=== PATIENT | male | born 1965 | race Caucasian/White ===

== ENCOUNTER 2019-07-27 20:00 | Emergency (ER) | payer SELFPAY ==
[~2019-07-27] VITALS: Ht 149.9 cm; Wt 71.0 kg
[2019-07-28] MEDS ORDERED: HYDROCODONE/ACETAMINOPHEN 5/325MG TABLET PO ONE (01:30)
[2019-07-28 06:13] VITALS: BP 135/76
== END 2019-07-28 06:49 | disposition home or self-care (01) ==
LOC: ER 20:00
DX: S93.402A Sprain of unspecified ligament of left ankle, initial encounter (principal); M25.552 Pain in left hip; M25.551 Pain in right hip; Y93.89 Activity, other specified; R03.0 Elevated blood-pressure reading, without diagnosis of hypertension; Y92.410 Unspecified street and highway as the place of occurrence of the external cause; V23.4XXA Motorcycle driver injured in collision with car, pick-up truck or van in traffic accident, initial encounter
CPT/HCPCS: 73521; 73610; 99283; Z7610